=== PATIENT | female | born 1995 | race Caucasian/White ===

== ENCOUNTER 2018-01-06 18:11 | Emergency (ER) | payer OTHER ==
[~2018-01-06] VITALS: Ht 160 cm; Wt 56.7 kg
[~2018-01-06 18:11] MED LIST: BACTRIM DS TAB1 EACH PO
[2018-01-06 19:15] VITALS: BP 91/58
== END 2018-01-06 19:16 | disposition home or self-care (01) ==
LOC: M.ERS 18:11
DX: Z32.01 Encounter for pregnancy test, result positive (principal)

== ENCOUNTER 2018-08-17 10:26 | Emergency (ER) | payer OTHER, MEDICAID ==
[~2018-08-17] VITALS: Ht 160 cm; Wt 72.6 kg
[2018-08-17] MEDS ORDERED: IRON325 PO (10:41)
[2018-08-17] MEDS ORDERED: STOOL SOFTENER100 MG PO (10:41)
[2018-08-17 10:54] LABS: ABSOLUTE BASOPHILS 0.1 thou/uL (0.0-0.2); ABSOLUTE EOSINOPHILS 0.1 thou/uL (0.0-0.7); ABSOLUTE LYMPHOCYTES 1.8 thou/uL (0.8-5.3); ABSOLUTE MONOCYTES 0.7 thou/uL (0.0-1.2); EOSINOPHILS 1.2 %; HEMATOCRIT 37.2 % (37.0-47.0); HEMOGLOBIN 12.1 gm/dL (12.0-15.0); LYMPHOCYTES 18.3 %; MCH 29.8 pg (26.0-34.0); MCHC 32.5 g/dL (28.0-37.0); MCV 91.7 fL (80.0-100.0); MONOCYTES 7.1 %; MPV 7.7 fl. (7.2-11.1); NUCLEATED RBCS 0 /100WBC; PLATELET COUNT* 348 thou/uL (150-400); POLYS 72.4 %; RBC 4.05 mil/uL (4.20-5.00); WBC 9.6 thou/uL (4.0-11.0)
[2018-08-17 11:09] LABS: CALCIUM 9.1 mg/dL (8.5-10.1); POTASSIUM 3.7 mmol/L (3.5-5.1); TOTAL BILIRUBIN 0.3 mg/dL (<0.1-1.0); TOTAL PROTEIN 7.8 g/dL (6.4-8.2)
[2018-08-17 11:33] LABS: URINE BILIRUBIN NEGATIVE (Negative); URINE BLOOD 3+ (Negative); URINE CLARITY CLEAR; URINE COLOR YELLOW; URINE GLUCOSE-RANDOM NEGATIVE (Negative); URINE KETONES NEGATIVE (Negative); URINE LEUKOCYTES-REFLEX NEGATIVE (Negative); URINE NITRITE-REFLEX NEGATIVE (Negative); URINE PROTEIN NEGATIVE (Negative); URINE SPECIFIC GRAVITY >= 1.030 (1.005-1.030); URINE UROBILINOGEN 0.2 E.U./dl (0.2-1.0)
[2018-08-17 11:45] LABS: SQUAMOUS >10 Many /LPF (0-3)
[2018-08-17 11:46] LABS: BACTERIA-REFLEX 1-9 Few /HPF (None Seen); CASTS None Seen /LPF (None Seen); CRYSTALS None Seen /LPF (None Seen); MUCUS >6 Heavy strn/LPF (None Seen); URINE WBC-REFLEX None Seen /HPF (0-5)
[2018-08-17 11:47] LABS: AMP/METHAMP Negative (Negative); BARBITURATES Negative (Negative); BENZODIAZEPINES Negative (Negative); COCAINE Negative (Negative); METHADONE Negative (Negative); OPIATES Negative (Negative); PCP Negative (Negative); THC Negative (Negative); YEAST-REFLEX Present (None Seen)
[2018-08-17 13:21] VITALS: BP 94/55
--- NOTE | 2018-08-17 14:07 | EKG ---
[place] [address] ELECTROCARDIOGRAM REPORT Name: [facility] HYDE [id number]: 08/17/18 Attend Phys: Discharge: 08/17/18 Date of : [birth year] Report #: [id number] THIS REPORT FOR: //name// [facility] ED Test Date: 2018-08-17 Test Time: 10:36:06 Pat Name: AARON HYDE Department: Room: Gender: F Clinical Quality Manager: : 1995 Requested By: [place] Nolasco Order Number: [id number] Jane MD: Femi Ricketts Measurements Intervals [place] Rate: 119 P: 70 MO: 188 QRS: 9 QRSD: 102 T: 1 QT: 311 QTc: 438 Interpretive Statements Sinus tachycardia Probable left atrial enlargement RSR' in V1 or V2, probably normal variant Nonspecific T abnormalities, anterior leads No previous ECG available for comparison Electronically Signed On 08-17-2018 14:07:33 CDT by Femi Ricketts [email or web address] <ELECTRONICALLY SIGNED> By: Femi Ricketts MD, [facility] 08/17/18 1407 [id number] Femi Ricketts MD, FAC /EPI
== END 2018-08-17 13:21 | disposition home or self-care (01) ==
LOC: M.ERS 10:26
PROVIDERS: Physician Assistant
DX: B37.9 Candidiasis, unspecified (principal); R42 Dizziness and giddiness; Z79.899 Other long term (current) drug therapy